=== PATIENT | female | born 1985 | race Caucasian/White ===

== ENCOUNTER 2016-08-13 13:19 | Emergency (ER) | payer OTHER ==
[~2016-08-13 13:19] MED LIST: AMOXICILLIN500 M1 PO; AMOXICILLIN500 MG PO; AMOXIL500 MG PO; ANAPROX DS550 MG PO; ATIVAN1 MG PO; AUGMENTIN 875 M1 TAB PO; AURALGAN 15 ML15 ML OT; AVPAK AZITHROM250 M1 PO; BACTRIM DS 8001 TA1 PO; BENTYL10 MG PO; CATAFLAM50 MG PO; CIPRO500 MG PO; CIPRODEX 0.3%-7.5 ML OT; CLARITIN-D 12 H1 TAB PO; CLARITIN10 MG PO; CLEOCIN150 MG PO; CLINDAMYCIN HC300 MG PO; CORTISPORIN1 OI1; DARVOCET N 1001 TAB PO; DIOVAN40 MG PO; FLONASE 0.05% 121 EA NAS; FLONASE ALLERG9.9 ML NAS; FLONASE0.05 MG/AC NS; Fioricet 325 MG1 TAB PO; LOMOTIL 0.025 M1 TA1 PO; LOMOTIL 0.025 M1 TAB PO; MACROBID100 M1 PO; MOTRIN800 MG PO; Motrin,Rufen800 MG PO; NAPROSYN250 MG PO; NAPROSYN500 MG PO; OVRAL-21 50 MCG1 TAB PO; PEN-VEE K500 MG PO; PHENERGAN W/DM120 ML PO; PHENERGAN25 M1 PO; PREDNICOT10 MG PO; PREDNISONE10 MG PO; PRENATAL1 TA3 PO; PRENATAL1 TA7 PO; PROVENTIL0.09 MG/AC IH; PYRIDIUM200 MG PO; ROBITUSSIN AC 110 ML PO; TRAMADOL HCL50 MG PO; TRIMOX500 MG PO; ULTRAM50 MG PO; VALIUM10 MG; VIBRAMYCIN100 MG PO; VICODIN 5/500 505 MG PO; VICODIN1 TAB PO; VITAMIN D32000 I1 PO; WELLBUTRIN75 MG PO; ZANTAC150 MG PO; ZITHROMAX Z PA250 MG PO; ZITHROMAX250 MG PO; ZOFRAN ODT4 MG SL; ZOFRAN4 MG PO; ZYRTEC1 MG/ML PO
[2016-09-24] MEDS ORDERED: CIPRO500 MG PO (14:52)
== END 2016-08-13 14:34 | disposition home or self-care (01) ==
LOC: ED 13:19
DX: K52.9 Noninfective gastroenteritis and colitis, unspecified (principal); F17.200 Nicotine dependence, unspecified, uncomplicated; Z90.49 Acquired absence of other specified parts of digestive tract; Z98.890 Other specified postprocedural states; Z88.1 Allergy status to other antibiotic agents

== ENCOUNTER 2016-12-10 17:40 | Emergency (ER) | payer OTHER ==
[~2016-12-10] VITALS: Ht 170.1 cm; Wt 122.5 kg
[2016-12-10] MEDS ORDERED: NAPROSYN500 MG PO (17:51)
== END 2016-12-10 18:47 | disposition home or self-care (01) ==
LOC: ED 17:40
DX: M79.671 Pain in right foot (principal); F17.200 Nicotine dependence, unspecified, uncomplicated; Z98.890 Other specified postprocedural states; Z90.49 Acquired absence of other specified parts of digestive tract; Z88.1 Allergy status to other antibiotic agents; W01.0XXA Fall on same level from slipping, tripping and stumbling without subsequent striking against object, initial encounter; Y93.89 Activity, other specified; Y92.89 Other specified places as the place of occurrence of the external cause; Y99.9 Unspecified external cause status

== ENCOUNTER 2017-06-22 14:49 | Emergency (ER) | payer OTHER ==
[~2017-06-22] VITALS: Ht 172.7 cm; Wt 120.7 kg
[2017-06-22] MEDS ORDERED: AMOXICILLIN500 M2 PO (17:01)
[2017-06-22] MEDS ORDERED: DIFLUCAN150 MG PO (17:01)
== END 2017-06-22 17:14 | disposition home or self-care (01) ==
LOC: ED 14:49
DX: H66.93 Otitis media, unspecified, bilateral (principal); J40 Bronchitis, not specified as acute or chronic; J02.9 Acute pharyngitis, unspecified; F17.200 Nicotine dependence, unspecified, uncomplicated; Z88.1 Allergy status to other antibiotic agents; Z79.899 Other long term (current) drug therapy

== ENCOUNTER 2017-09-01 18:28 | Emergency (ER) | payer MEDICAID ==
[~2017-09-01] VITALS: Ht 170.1 cm; Wt 113.4 kg
[~2017-09-01 18:28] MED LIST changes: +AMOXICILLIN500 M2 PO; +DIFLUCAN150 MG PO
[2017-09-01] MEDS ORDERED: TESSALON PERLE100 M1 PO (19:51)
[2017-09-01] MEDS ORDERED: DELTASONE20 M1 PO (19:51)
[2017-09-01] MEDS ORDERED: ZITHROMAX250 MG PO (19:51)
== END 2017-09-01 20:11 | disposition home or self-care (01) ==
LOC: ED 18:28
DX: J40 Bronchitis, not specified as acute or chronic (principal); J32.9 Chronic sinusitis, unspecified; F17.200 Nicotine dependence, unspecified, uncomplicated; Z98.890 Other specified postprocedural states; Z90.49 Acquired absence of other specified parts of digestive tract; Z79.899 Other long term (current) drug therapy; Z88.1 Allergy status to other antibiotic agents

== ENCOUNTER 2017-10-30 20:56 | Emergency (ER) | payer OTHER ==
[~2017-10-30] VITALS: Ht 172.7 cm; Wt 117.9 kg
[~2017-10-30 20:56] MED LIST changes: +DELTASONE20 M1 PO; +TESSALON PERLE100 M1 PO
[2017-10-30] MEDS ORDERED: SEPTDS PO (21:59)
== END 2017-10-30 22:47 | disposition home or self-care (01) ==
LOC: ED 20:56
DX: L02.31 Cutaneous abscess of buttock (principal); F17.200 Nicotine dependence, unspecified, uncomplicated; Z98.890 Other specified postprocedural states; Z90.49 Acquired absence of other specified parts of digestive tract; Z79.899 Other long term (current) drug therapy; Z88.1 Allergy status to other antibiotic agents

== ENCOUNTER 2017-11-22 14:23 | Emergency (ER) | payer OTHER ==
[~2017-11-22] VITALS: Ht 172.7 cm; Wt 117.0 kg
[~2017-11-22 14:23] MED LIST changes: +SEPTDS PO
[2017-11-22] MEDS ORDERED: IBUPROFEN600 MG PO (15:36)
[2017-11-22] MEDS ORDERED: DOXYCYCLINE100 M3 PO (15:36)
== END 2017-11-22 16:00 | disposition home or self-care (01) ==
LOC: ED 14:23
DX: L02.415 Cutaneous abscess of right lower limb (principal); Z88.1 Allergy status to other antibiotic agents

== ENCOUNTER 2018-06-10 06:59 | Emergency (ER) | payer OTHER ==
[~2018-06-10] VITALS: Ht 172.7 cm; Wt 117.9 kg
[~2018-06-10 06:59] MED LIST changes: +DOXYCYCLINE100 M3 PO; +IBUPROFEN600 MG PO
[2018-06-10] MEDS ORDERED: TYLENOL325 M1 PO (07:44)
[2018-06-10] MEDS ORDERED: PENICILLIN-VK500 MG PO (07:44)
[2018-06-10] MEDS ORDERED: NAPROSYN500 MG PO (07:44)
[2018-06-10] MEDS ORDERED: ZOFRAN ODT4 MG SL (07:44)
[2018-06-10] MEDS ORDERED: [UNRECOGNIZED DRUG - OTHER] MM (07:53)
== END 2018-06-10 08:10 | disposition home or self-care (01) ==
LOC: ED 06:59
DX: K02.9 Dental caries, unspecified (principal); I10 Essential (primary) hypertension; Z88.1 Allergy status to other antibiotic agents

== ENCOUNTER 2018-07-30 03:40 | Emergency (ER) | payer OTHER ==
[~2018-07-30] VITALS: Ht 172.7 cm; Wt 117.9 kg
[~2018-07-30 03:40] MED LIST changes: +PENICILLIN-VK500 MG PO; +TYLENOL325 M1 PO; +[UNRECOGNIZED DRUG - OTHER] MM
[2018-07-30] MEDS ORDERED: CLINDAMYCIN150 MG PO (03:56)
[2018-07-30] MEDS ORDERED: IBU800 MG PO (03:56)
== END 2018-07-30 03:55 | disposition home or self-care (01) ==
LOC: ED 03:40
DX: K02.9 Dental caries, unspecified (principal); Z88.1 Allergy status to other antibiotic agents; Z79.2 Long term (current) use of antibiotics; Z79.899 Other long term (current) drug therapy; Z90.49 Acquired absence of other specified parts of digestive tract

== ENCOUNTER 2022-12-20 07:33 | Emergency (ER) | payer OTHER ==
[~2022-12-20] VITALS: Wt 97.5 kg
[~2022-12-20 07:33] MED LIST changes: +CLINDAMYCIN150 MG PO; +IBU800 MG PO
[2022-12-20 08:13] LABS: BASO # 0.1 10*3/uL (0.0-0.1); BASO % 0.8 % (0.0-1.0); EOS % 0.1 % (1.0-4.0); HEMATOCRIT 41.8 % (37.0-47.0); LYMPH # 2.2 10*3/uL (1.3-4.4); LYMPH % 24.5 % (27.0-41.0); MEAN CELL VOLUME 78.7 fl (81.0-99.0); MEAN CORPUSCULAR HGB 24.9 pg (27.0-31.0); MEAN CORPUSCULAR HGB CONC 31.6 g/dl (33.0-37.0); MEAN PLATELET VOLUME 10.5 fl (9.6-12.3); MONO # 0.6 10*3/uL (0.1-1.0); MONO % 6.5 % (3.0-9.0); NEUT # 6.1 10*3/uL (2.3-7.9); NEUT % 67.9 % (47.0-73.0); PLATELET COUNT AUTOMATED 311 10*3/uL (130-400); RED BLOOD COUNT 5.31 10*6/uL (4.10-5.10); RED CELL DISTRI WIDTH 15.2 % (0-14.5)
[2022-12-20 08:36] LABS: ALKALINE PHOSPHATASE 67 U/L (46-116); BUN 6 mg/dl (9-23); CHLORIDE 105 mmol/L (98-107); LIPASE 31 U/L (12-53); POTASSIUM 4.1 mmol/L (3.4-5.1); SGPT/ALT 11 U/L (10-49); TOTAL PROTEIN 7.1 gm/dL (6.0-8.0)
[2022-12-20 08:42] LABS: BETA-HCG, QUANT < 3.0 mIU/mL (3-10)
[2022-12-20] MEDS ORDERED: CLEOCIN HCL150 MG PO (09:20)
[2022-12-20] MEDS ORDERED: ONDANSETRON4 MG SL (09:20)
[2022-12-20] MEDS ORDERED: PEPCID20 MG PO (09:20)
== END 2022-12-20 09:23 | disposition home or self-care (01) ==
LOC: ED 07:33
PROVIDERS: Emergency Medicine
DX: K52.9 Noninfective gastroenteritis and colitis, unspecified (principal); K08.89 Other specified disorders of teeth and supporting structures; I10 Essential (primary) hypertension; J45.909 Unspecified asthma, uncomplicated; F41.9 Anxiety disorder, unspecified; F31.9 Bipolar disorder, unspecified; Z88.1 Allergy status to other antibiotic agents; Z88.8 Allergy status to other drugs, medicaments and biological substances; Z90.49 Acquired absence of other specified parts of digestive tract; Z98.890 Other specified postprocedural states; Z90.89 Acquired absence of other organs

== ENCOUNTER 2023-01-09 13:05 | Emergency (ER) | payer OTHER ==
[~2023-01-09] VITALS: Wt 96.6 kg
[~2023-01-09 13:05] MED LIST changes: +CLEOCIN HCL150 MG PO; +ONDANSETRON4 MG SL; +PEPCID20 MG PO
[2023-01-09] MEDS ORDERED: ZITHROMAX500 MG PO (14:45)
== END 2023-01-09 15:08 | disposition home or self-care (01) ==
LOC: ED 13:05
DX: H66.92 Otitis media, unspecified, left ear (principal); R19.7 Diarrhea, unspecified; R09.81 Nasal congestion; I10 Essential (primary) hypertension; J45.909 Unspecified asthma, uncomplicated; F41.9 Anxiety disorder, unspecified; F31.9 Bipolar disorder, unspecified; Z88.1 Allergy status to other antibiotic agents; Z88.8 Allergy status to other drugs, medicaments and biological substances; Z98.890 Other specified postprocedural states; Z90.89 Acquired absence of other organs

== ENCOUNTER 2023-01-17 15:52 | Emergency (ER) | payer OTHER ==
[~2023-01-17] VITALS: Wt 113.4 kg
[~2023-01-17 15:52] MED LIST changes: +ZITHROMAX500 MG PO
[2023-01-17] MEDS ORDERED: NAPROSYN500 MG PO (22:39)
[2023-01-17] MEDS ORDERED: CLINDAMYCIN HC300 MG PO (22:39)
== END 2023-01-17 20:30 | disposition left against medical advice (07) ==
LOC: ED 15:52
DX: K08.89 Other specified disorders of teeth and supporting structures (principal); Z53.21 Procedure and treatment not carried out due to patient leaving prior to being seen by health care provider

== ENCOUNTER 2023-01-17 20:28 | Emergency (ER) | payer OTHER ==
[~2023-01-17] VITALS: Ht 170.1 cm; Wt 113.4 kg
[2023-01-17] MEDS ORDERED: CLINDAMYCIN HC300 MG PO (22:39)
[2023-01-17] MEDS ORDERED: NAPROSYN500 MG PO (22:39)
== END 2023-01-17 23:20 | disposition home or self-care (01) ==
LOC: ED 20:28
DX: K02.9 Dental caries, unspecified (principal); I10 Essential (primary) hypertension; J45.909 Unspecified asthma, uncomplicated; F41.9 Anxiety disorder, unspecified; F31.9 Bipolar disorder, unspecified; Z88.1 Allergy status to other antibiotic agents; Z88.8 Allergy status to other drugs, medicaments and biological substances; Z90.49 Acquired absence of other specified parts of digestive tract; Z90.89 Acquired absence of other organs; Z98.890 Other specified postprocedural states

== ENCOUNTER 2023-04-06 07:55 | Emergency (ER) | payer OTHER ==
[~2023-04-06] VITALS: Ht 170.1 cm; Wt 117.9 kg
[2023-04-06] MEDS ORDERED: CYCLOBENZAPRINE10 MG PO (10:10)
[2023-04-06] MEDS ORDERED: PREDNISONE50 MG PO (10:10)
[2023-04-06] MEDS ORDERED: HYDROCODONE-AC1 EAC1 PO (10:10)
== END 2023-04-06 10:30 | disposition home or self-care (01) ==
LOC: ED 07:55
DX: M54.42 Lumbago with sciatica, left side (principal); R20.0 Anesthesia of skin; Z88.1 Allergy status to other antibiotic agents; Z79.2 Long term (current) use of antibiotics; Z79.899 Other long term (current) drug therapy; Z98.890 Other specified postprocedural states; Z90.49 Acquired absence of other specified parts of digestive tract; Z87.42 Personal history of other diseases of the female genital tract

== ENCOUNTER 2023-04-14 19:06 | Emergency (ER) | payer OTHER ==
[~2023-04-14] VITALS: Ht 182.8 cm; Wt 121.1 kg
[~2023-04-14 19:06] MED LIST changes: +CYCLOBENZAPRINE10 MG PO; +HYDROCODONE-AC1 EAC1 PO; +PREDNISONE50 MG PO
== END 2023-04-14 21:53 | disposition home or self-care (01) ==
LOC: ED 19:06
DX: S70.12XA Contusion of left thigh, initial encounter (principal); I10 Essential (primary) hypertension; J45.909 Unspecified asthma, uncomplicated; F41.9 Anxiety disorder, unspecified; F31.9 Bipolar disorder, unspecified; Z88.1 Allergy status to other antibiotic agents; Z88.8 Allergy status to other drugs, medicaments and biological substances; Z98.890 Other specified postprocedural states; Z90.49 Acquired absence of other specified parts of digestive tract; Z90.89 Acquired absence of other organs; X58.XXXA Exposure to other specified factors, initial encounter; Y93.89 Activity, other specified; Y92.89 Other specified places as the place of occurrence of the external cause; Y99.8 Other external cause status

== ENCOUNTER 2023-05-05 19:36 | Emergency (ER) | payer OTHER ==
[~2023-05-05] VITALS: Ht 170.1 cm; Wt 117.9 kg
[2023-05-05 21:40] LABS: BASO # 0.1 10*3/uL (0.0-0.1); BASO % 0.7 % (0.0-1.0); HEMATOCRIT 42.4 % (37.0-47.0); LYMPH % 28.8 % (27.0-41.0); MEAN CELL VOLUME 79.1 fl (81.0-99.0); MEAN CORPUSCULAR HGB 25.6 pg (27.0-31.0); MEAN CORPUSCULAR HGB CONC 32.3 g/dl (33.0-37.0); MEAN PLATELET VOLUME 9.8 fl (9.6-12.3); MONO # 0.7 10*3/uL (0.1-1.0); MONO % 6.7 % (3.0-9.0); NEUT # 6.7 10*3/uL (2.3-7.9); NEUT % 63.5 % (47.0-73.0); PLATELET COUNT AUTOMATED 321 10*3/uL (130-400); RED BLOOD COUNT 5.36 10*6/uL (4.10-5.10); RED CELL DISTRI WIDTH 15.7 % (0-14.5); WHITE BLOOD COUNT 10.6 10*3/uL (4.8-10.8)
[2023-05-05 22:05] LABS: ALKALINE PHOSPHATASE 71 U/L (46-116); BUN 5 mg/dl (9-23); CHLORIDE 111 mmol/L (98-107); POTASSIUM 3.6 mmol/L (3.4-5.1)
[2023-05-05 22:06] LABS: SGPT/ALT < 7 U/L (10-49)
[2023-05-06] MEDS ORDERED: OMNICEF300 MG PO (02:32)
== END 2023-05-06 02:34 | disposition home or self-care (01) ==
LOC: ED 19:36
PROVIDERS: Nurse Practitioner
DX: J06.9 Acute upper respiratory infection, unspecified (principal); Z20.822 Contact with and (suspected) exposure to COVID-19; H66.93 Otitis media, unspecified, bilateral; N83.202 Unspecified ovarian cyst, left side; R11.2 Nausea with vomiting, unspecified; R19.7 Diarrhea, unspecified; Z88.1 Allergy status to other antibiotic agents; Z87.42 Personal history of other diseases of the female genital tract; Z90.49 Acquired absence of other specified parts of digestive tract; Z98.890 Other specified postprocedural states

== ENCOUNTER → 2023-05-09 | Outpatient (CLI) | payer OTHER ==
[~2023-05-09] MED LIST changes: +OMNICEF300 MG PO
[2023-05-10 08:10] LABS: CANCER ANTIGEN (CA) 125 9.3 U/mL (0.0-38.1)
== END | disposition home or self-care (01) ==
LOC: LAB 14:20 → US 14:30
PROVIDERS: ATTEND Nurse Practitioner Women's Health
DX: N83.202 Unspecified ovarian cyst, left side (principal)